=== PATIENT | male | born 1950 | race Caucasian/White ===

== ENCOUNTER → 2018-07-19 13:39 | Outpatient (CLI) | payer MEDICARE, SELFPAY ==
--- NOTE | 2018-07-19 13:43 | DI.RAD.S_ITS ---
PROCEDURE: XR CHEST 2V INDICATIONS: cough TECHNIQUE: 2 views of the chest were acquired. COMPARISON: None. FINDINGS: Surgical changes and devices: None. Lungs and pleura: Lungs are clear. No pleural effusions or pneumothorax. Mediastinum: Mediastinal contours are normal. Heart size is normal. Bones and chest wall: No suspicious bony abnormalities. Soft tissues appear unremarkable. IMPRESSION: Normal for age, source of current cough symptoms is not seen. Dictated by: Mesfin Guzman M.D. on 07/19/2018 at 14:22 Approved by: Mesfin Guzman M.D. on 07/19/2018 at 14:24
== END ==
PROVIDERS: Visit Provider Physician Assistant
DX: R05 Cough (principal)
CPT/HCPCS: 71046

== ENCOUNTER 2018-09-30 19:38 | Emergency (ER) | payer MEDICARE, SELFPAY ==
[2018-09-30 19:55] VITALS: BP 126/72; PULSE 57; RESP 15; TEMP 36.7; O2SAT 96; BMI 29.2
[2018-09-30 20:29] LABS: Bacteria Urine None Seen
--- NOTE | 2018-09-30 20:29 | ED.MALEGU ---
HPI - Male Genitourinary General Chief complaint: Urogenital-Male Stated complaint: thinks kidney stones Time Seen by Provider: 09/30/18 20:19 Source: patient Mode of arrival: ambulatory Limitations: no limitations History of Present Illness HPI Narrative: Patient is a 67-year-old male here for evaluation of left-sided flank pain. He states that it started several hours prior to arrival here in the emergency department. He stated initially started on the front of his abdomen but then moved to the back. He has no urinary symptoms. No bowel symptoms. No prior abdominal surgeries. Patient states that he has had a kidney stone in the past on the right but that was approximately 15 years ago. He does state that the pain that he is experiencing today is similar but he is unsure if he is currently of a kidney stone. No interventions prior to arrival Related Data Home Medications Medication Instructions Recorded Confirmed losartan 100 1 tab PO DAILY 07/19/18 07/19/18 mg-hydrochlorothiazide 25 mg tablet Previous Rx's Medication Instructions Recorded azithromycin 250 mg tablet See Rx Instructions PO .COMPLEX #6 07/19/18 tab hydrocodone-acetaminophen [Axis] 1 tab PO Q4-6H PRN #10 tab 09/30/18 ondansetron 4 mg PO Q6-8H PRN #10 tab 09/30/18 Allergies Allergy/AdvReac Type Severity Reaction Status Date / Time No Known Drug Allergies Allergy Verified 07/19/18 13:04 Review of Systems Constitutional Denies fever(s) and Denies headache(s) ENT Ears, Nose, Mouth, and Throat: Denies headache(s) Cardiovascular Denies chest pain and Denies dyspnea Respiratory Denies dyspnea Gastrointestinal Gastrointestinal: Reports abdominal pain, Denies nausea and Denies vomiting Genitourinary Denies dysuria, Reports flank pain, Denies testicular pain and Denies urinary frequency Musculoskeletal Denies myalgias and Denies arthralgias Integumentary/Breasts Denies rash Neurologic Denies headache(s) Hematologic/Lymphatic Denies easy bleeding and Denies easy bruising [facility] Medical History Hypertension (Acute) Social History Smoking Status: Former smoker Social History Smoking Status: Former smoker Exam Initial Vital Signs Initial Vital Signs: Vital Signs Temperature 98.0 F 09/30/18 19:55 Pulse Rate 57 L 09/30/18 19:55 Respiratory Rate 15 09/30/18 19:55 Blood Pressure 126/72 09/30/18 19:55 Pulse Oximetry 96 09/30/18 19:55 Const General: cooperative, comfortable, well developed, well groomed and No acute distress Orientation: alert, awake and oriented x3 HENMT Head: normal to inspection and normocephalic Resp Effort & Inspection: normal respiratory effort Auscultation: clear to auscultation bilaterally Cardio Rate: regular rate Rhythm: regular rhythm GI Inspection: non-distended Palpation: soft, No firm and No tender Back/Spine/Pelvis Back: No CVA tenderness Skin Lesions: no lesions Rashes: no rashes Neuro General: alert and awake Cognition: normal cognition Speech: speech normal Motor: muscle tone normal throughout Extrem General: normal to inspection and capillary refill normal Psych Appearance: grossly normal and well kempt Course Orders Ordered: ED Orders 09/30/18 20:23 Urine Microscopic Stat 09/30/18 20:35 Basic Metabolic Panel Stat Complete Blood Count AUTO DIFF Stat 09/30/18 20:44 CT kidney ureter bladder (KUB) Stat Discontinued Medications Acetaminophen (Tylenol) 650 mg PO NOW ONE Stop: 09/30/18 20:20 Last Admin: 09/30/18 20:40 Dose: 650 mg Hydrocodone Bitart/Acetaminophen (Vicodin Prepack) 1 bottle MISC SEEINSTR ONE Stop: 09/30/18 22:24 Last Admin: 09/30/18 22:31 Dose: 1 bottle Lidocaine HCl 7.1 ml/ Sodium (Chloride) 57.1 mls @ 342.6 mls/hr IV NOW ONE Stop: 09/30/18 20:20 Last Infusion: 09/30/18 21:02 Dose: 0 mls/hr Admin: 09/30/18 20:40 Dose: 342.6 mls/hr Ketorolac Tromethamine (Toradol) 30 mg IV NOW ONE Stop: 09/30/18 20:20 Last Admin: 09/30/18 20:40 Dose: 30 mg Ondansetron HCl (Zofran Odt Prepack) 1 bottle MISC SEEINSTR ONE Stop: 09/30/18 22:24 Last Admin: 09/30/18 22:31 Dose: 1 bottle Vital Signs - 8 hr 09/30/18 19:55 09/30/18 22:24 Temperature 98.0 F Pulse Rate 57 L 65 Respiratory Rate 15 17 Blood Pressure 126/72 Blood Pressure [Left Arm] 132/76 Pulse Oximetry 96 95 MDM - Male Genitourinary Lab Data Attestation: I reviewed the patient's lab results. Result diagrams: 09/30/18 20:35 09/30/18 20:35 Lab Results 09/30/18 09/30/18 09/30/18 Range/Units 20:23 20:35 20:35 WBC 11.2 H (4.5-11.0) X10^3/uL RBC 4.73 (4.5-5.9) X10^6/uL Hgb 14.0 (13.5-17.5) g/dL Hct 41.9 (41-53) % MCV 88.5 (80-100) fL MCH 29.5 (26-34) PG MCHC 33.3 (30-36) % RDW 13.6 (11.6-14.8) % Plt Count 231 (150-400) X10^3/uL Neut % (Auto) 82.0 H (50-75) % Lymph % (Auto) 12.1 L (25-40) % Daniels % (Auto) 5.4 (3-14) % Eos % (Auto) 0.4 L (2-4) % Baso % (Auto) 0.1 (0-2) % Neut # (Auto) 9200 H (5406-8023) /uL Lymph # (Auto) 1400 (4170-1546) /uL Daniels # (Auto) 600 (0-900) /uL Eos # (Auto) 0 (0-450) /uL Baso # (Auto) 0 (0-100) /uL Sodium 138 (137-145) mmol/L Potassium 3.7 (3.4-5.1) mmol/L Chloride 100 (98-107) mmol/L Carbon Dioxide 27 (22-32) mmol/L BUN 27 H (9-20) mg/dL Creatinine 1.20 (0.66-1.25) mg/dL Estimated GFR > 60.0 (>60) mL/min BUN/Creatinine Ratio 22.5 H (6-22) Glucose 139 H (80-110) mg/dL Calcium 9.4 (8.4-10.2) mg/dL Urine RBC 10-30/hpf H (0-5/HPF) Urine WBC 0-1/hpf (0-5/HPF) Ur Squamous Epith Cells 0-1 /hpf (0-5/HPF) Urine Bacteria None seen (None) Ur Culture Indicated? Cult not indicated Urine Dip Bedside Urine Glucose Negative Bedside Urine Bilirubin - Negative Bedside Urine Ketone +++ 80 Urine Specific [place] 5.5 Bedside Urine Occult Blood +++ Bedside Urine pH 5.5 Bedside Urine Protein +/- 15 Bedside Urine Urobilinogen +/- 1mg Bedside Urine Nitrite - Negative Bedside Urine Leukocytes - Negative Esterase Imaging Data CT scan - abdomen: Radiologist's impression: [address] [address] [address] Scan Report Signed Patient: Jones De La Cruz GMR#: [id number] : 2Acct:[id number] Age/Sex: 67 / MDate of Service: 09/30/18 Loc: ED Accession Number: [id number] Procedure: CT kidney ureter bladder (KUB) Ordering Provider: Shiraz Dias D.O. PROCEDURE: CT KIDNEY URETER BLADDER (KUB) INDICATIONS: Left-sided flank pain concern for stone TECHNIQUE: Noncontrast 5 mm thick sections acquired from the diaphragms to the symphysis. 5 mm thick coronal and sagittal reformats were then performed. For radiation dose reduction, the following was used: automated exposure control, adjustment of mA and/or kV according to patient size. COMPARISON: None. FINDINGS: Image quality: Excellent. Lung bases: Lung bases are clear. Heart size is normal. Urinary system: There is a 5 mm stone in the proximal left ureter. There is mild left hydronephrosis and perinephric stranding. Multiple nonobstructive renal calculi are present bilaterally. There is a 1.3 cm hyperdense nodule in the superior pole of the right kidney, most likely a hyperdense cyst. No right hydronephrosis which Both kidneys are normal in size. Bladder wall thickness is normal; no calcified bladder stones. Other solid organs: Liver is normal in size. Gallbladder is normal. Pancreas is normal in contours. Spleen is normal in size. No adrenal nodules. Peritoneum and bowel: A few colonic diverticular are noted. Unenhanced bowel loops demonstrate normal wall thickness and caliber. Normal appendix. No free fluid or air. Nodes and vessels: No retroperitoneal or mesenteric adenopathy by size criteria. Aorta and inferior vena cava are normal in caliber. Abdominal wall: No ventral hernias. Pelvis: No free pelvic fluid. No inguinal hernias or adenopathy. Bones: No suspicious bony lesions. No vertebral body compression fractures. Mild scoliosis. Degenerative disc disease at L4-L5 causing moderate spinal stenosis. IMPRESSION: 1. A 5 mm obstructing stone in the proximal left ureter causing mild right hydronephrosis and perinephric stranding. 2. Small nonobstructive renal calculi bilaterally. 3. There is a 1.3 cm hyperdense nodule in the superior pole of the right kidney, most likely a hyperdense cyst. 4. Degenerative disc disease at L4-L5 causing moderate spinal stenosis. Dictated by: Williams Harden M.D. on 09/30/2018 at 22:04 Approved by: Williams Harden M.D. on 09/30/2018 at 22:10 [facility] Narrative Medical decision making narrative: Patient with blood in his urine however no other signs of infection. Creatinine is unremarkable. CT scan does show a 5 mm left-sided ureteral stone most likely causing his symptoms. Patient was symptom free after treatment here in the emergency department. Will send home with Zofran and pain medication. Patient was given return precautions and follow-up instructions. He expressed understanding and agreement with plan. Discharge Plan Departure Patient Disposition: Home Clinical Impression: Renal colic on left side Discharge Date/Time: 09/30/18 22:44 Interventions: ED Discharge Assessment Last Done: 09/30/18 22:43 Instructions: DI for Kidney Stones Activity Restrictions/Additional Instructions: You have a 5 mm stone on the left side which is most likely causing your symptoms today. Be sure you increase your fluid intake. Take the medications as directed. Return to the emergency department for any fevers, inability to urinate, worsening pain, or any other concerning symptoms contact your primary care doctor for follow-up. Prescriptions: New hydrocodone-acetaminophen [Axis] 5-325 mg tablet 1 tab PO Q4-6H PRN (Reason: pain) Qty: 10 RF: 0 ondansetron 4 mg tablet,disintegrating 4 mg PO Q6-8H PRN (Reason: nausea and vomiting) Qty: 10 RF: 0 No Action losartan-hydrochlorothiazide 100-25 mg tablet 1 tab PO DAILY RF: 0 azithromycin 250 mg tablet See Rx Instructions PO .COMPLEX Qty: 6 RF: 0
[2018-09-30 20:36] LABS: Culture Indicated Urine Cult Not Indicated; RBC Urine 10-30/HPF (0-5/HPF); Squamous Epithelial Cell Urine 0-1 /HPF (0-5/HPF); WBC Urine 0-1/HPF (0-5/HPF)
[2018-09-30] MEDS: ACETAMINOPHEN 325 MG TABLET 650 MG PO (20:40)
[2018-09-30] MEDS: KETOROLAC 60 MG/2 ML VIAL 30 MG IV (20:40)
[2018-09-30] MEDS: LIDOCAINE 2% 7.1 ML in SODIUM CHLORIDE 0.9% 50 ML 342.6 ML IV (20:40)
--- NOTE | 2018-09-30 20:44 | DI.CT.S_ITS ---
PROCEDURE: CT KIDNEY URETER BLADDER (KUB) INDICATIONS: Left-sided flank pain concern for stone TECHNIQUE: Noncontrast 5 mm thick sections acquired from the diaphragms to the symphysis. 5 mm thick coronal and sagittal reformats were then performed. For radiation dose reduction, the following was used: automated exposure control, adjustment of mA and/or kV according to patient size. COMPARISON: None. FINDINGS: Image quality: Excellent. Lung bases: Lung bases are clear. Heart size is normal. Urinary system: There is a 5 mm stone in the proximal left ureter. There is mild left hydronephrosis and perinephric stranding. Multiple nonobstructive renal calculi are present bilaterally. There is a 1.3 cm hyperdense nodule in the superior pole of the right kidney, most likely a hyperdense cyst. No right hydronephrosis which Both kidneys are normal in size. Bladder wall thickness is normal; no calcified bladder stones. Other solid organs: Liver is normal in size. Gallbladder is normal. Pancreas is normal in contours. Spleen is normal in size. No adrenal nodules. Peritoneum and bowel: A few colonic diverticular are noted. Unenhanced bowel loops demonstrate normal wall thickness and caliber. Normal appendix. No free fluid or air. Nodes and vessels: No retroperitoneal or mesenteric adenopathy by size criteria. Aorta and inferior vena cava are normal in caliber. Abdominal wall: No ventral hernias. Pelvis: No free pelvic fluid. No inguinal hernias or adenopathy. Bones: No suspicious bony lesions. No vertebral body compression fractures. Mild scoliosis. Degenerative disc disease at L4-L5 causing moderate spinal stenosis. IMPRESSION: 1. A 5 mm obstructing stone in the proximal left ureter causing mild right hydronephrosis and perinephric stranding. 2. Small nonobstructive renal calculi bilaterally. 3. There is a 1.3 cm hyperdense nodule in the superior pole of the right kidney, most likely a hyperdense cyst. 4. Degenerative disc disease at L4-L5 causing moderate spinal stenosis. Dictated by: Williams Harden M.D. on 09/30/2018 at 22:04 Approved by: Williams Harden M.D. on 09/30/2018 at 22:10
[2018-09-30 20:48] LABS: Add Manual Diff / Slide Review NO; Basophils Absolute Auto 0 /uL (0-100); Basophils Percent Auto 0.1 % (0-2); Eosinophils Absolute Auto 0 /uL (0-450); Eosinophils Percent Auto 0.4 % (2-4); Hematocrit 41.9 % (41-53); Lymphocytes Absolute Auto 1400 /uL (1100-4500); Lymphocytes Percent Auto 12.1 % (25-40); Mean Corpuscular HGB Conc 33.3 % (30-36); Mean Corpuscular Hemoglobin 29.5 PG (26-34); Mean Corpuscular Volume 88.5 fL (80-100); Monocytes Absolute Auto 600 /uL (0-900); Monocytes Percent Auto 5.4 % (3-14); Neutrophils Absolute Auto 9200 /uL (1500-7000); Platelet Count 231 X10^3/uL (150-400); Red Blood Cell Count 4.73 X10^6/uL (4.5-5.9); Red Cell Distribution Width 13.6 % (11.6-14.8); White Blood Cell Count 11.2 X10^3/uL (4.5-11.0)
[2018-09-30 20:58] LABS: BUN Creatinine Ratio 22.5 (6-22); Blood Urea Nitrogen 27 mg/dL (9-20); Calcium 9.4 mg/dL (8.4-10.2); Carbon Dioxide 27 mmol/L (22-32); Chloride 100 mmol/L (98-107); Estimated Glomerular Filt Rate > 60.0 mL/min (>60); Glucose 139 mg/dL (80-110); Potassium 3.7 mmol/L (3.4-5.1); Sodium 138 mmol/L (137-145)
[2018-09-30 21:07] LABS: HEMOLYSIS 67 (0-50)
[2018-09-30 22:24] VITALS: BP 132/76; PULSE 65; RESP 17; O2SAT 95
[2018-09-30] MEDS: ONDANSETRON 4 MG ODT PREPACK 1 BOTTLE MISC (22:31)
[2018-09-30] MEDS: HYDROCODONE/ACET 5/325 PREPACK 1 BOTTLE MISC (22:31)
== END 2018-09-30 22:44 | disposition home or self-care (01) ==
PROVIDERS: Emergency Provider Emergency Medicine
DX: N23 Unspecified renal colic (principal)
CPT/HCPCS: 36591; 74176; 80048; 81003; 81015; 85025; 96365; 96375; 99283; 99284; J1885

== ENCOUNTER → 2019-10-01 14:51 | Outpatient (CLI) | payer MEDICARE, SELFPAY ==
[2019-10-02 03:23] LABS: COVID19 Sendout Not Detected (Not Detect)
== END ==
PROVIDERS: Visit Provider Physician Assistant
DX: Z01.812 Encounter for preprocedural laboratory examination (principal)
CPT/HCPCS: 87635

== ENCOUNTER → 2020-12-31 13:48 | Outpatient (CLI) | payer MEDICARE, SELFPAY ==
[2020-12-31 14:44] LABS: COVID19 -Nasal RAPID Negative (Negative)
== END ==
PROVIDERS: Referring Provider Physician Assistant; Visit Provider Physician Assistant
DX: Z20.822 Contact with and (suspected) exposure to COVID-19 (principal)
CPT/HCPCS: 87635

== ENCOUNTER → 2021-04-28 13:11 | Outpatient (CLI) | payer MEDICARE, SELFPAY ==
[2021-04-28 16:19] LABS: COVID19 -Nasal RAPID Negative (Negative)
== END ==
PROVIDERS: Visit Provider Physician Assistant
DX: Z20.822 Contact with and (suspected) exposure to COVID-19 (principal)
CPT/HCPCS: 87635